=== PATIENT | male | born 1980 | race Two or more races ===

== ENCOUNTER 2023-10-07 10:34 | Emergency (ER) | payer OTHER ==
[2023-10-07 11:00] VITALS: RESP 18; BMI 30.1
[2023-10-07] MEDS ORDERED: IBUPROFEN 600 MG TABLET (FP) PO ONE ×2 (11:51→12:15)
[2023-10-07 13:57] VITALS: BP 120/76; PULSE 64; TEMP 98.9
== END 2023-10-07 13:59 | disposition home or self-care (01) ==
LOC: JERFT 10:34
DX: R09.81 Nasal congestion (principal); R51.9 Headache, unspecified; R05.9 Cough, unspecified; J02.9 Acute pharyngitis, unspecified; R50.9 Fever, unspecified; M79.10 Myalgia, unspecified site; J34.89 Other specified disorders of nose and nasal sinuses; J39.2 Other diseases of pharynx; U07.1 COVID-19
CPT/HCPCS: 0241U-QW; 87651; 99283-25